=== PATIENT | male | born 1980 | race Caucasian/White ===

== ENCOUNTER 2017-05-03 16:27 | Emergency (ER) | payer MEDICARE, SELFPAY ==
[2017-05-03 17:00] VITALS: BP 131/68
--- NOTE | 2017-05-03 17:51 | EDM.PDOC ---
[id number]: LOW BACK PAIN Time Seen by Provider: 05/03/17 17:25 Source of Information: Reports: Patient, Family History Limitations: Reports: No Limitations - History of Present Illness INITIAL COMMENTS - FREE TEXT/NARRATIVE: 36-year-old male with chronic low back pain after several surgeries has a chronic nerve stimulator which helps control pain. The cord to charge the stimulator ripped off when it got caught on a dresser, another cord is ordered and should arrive any day but his battery ran out of power 2 days ago. He has an appointment to establish care with Dr. Dubose in 2 weeks. No significant radiculopathy, no incontinence. He's been taking ibuprofen and Tylenol. Onset: Gradual (Over the past several days) Location: Reports: Back Quality: Reports: Ache, Burning Severity: Moderate Associated Symptoms: Denies: Headaches, Loss of Appetite, Shortness of Breath, Weakness Lower Posterior Back Pain Score (Numeric/FACES): 9 - Related Data Allergies Allergy/AdvReac Type Severity Reaction Status Date / Time dronabinol Allergy Cannot Verified 04/07/15 21:31 Remember codeine AdvReac Nausea and Verified 04/07/15 21:31 Vomiting tramadol AdvReac Nausea and Verified 04/07/15 21:31 Vomiting Home Meds: Home Meds Amitriptyline [Elavil] 150 mg PO BEDTIME 11/19/13 [History] DULoxetine [Cymbalta] 90 mg PO DAILY 11/11/14 [History] Amphetamine/Dextroamphetamine [Adderall XR] 1 tab PO QAM 05/03/17 [History] Divalproex Sodium [Divalproex Sodium ER] 1 tab PO TID 05/03/17 [History] Past Medical History Neurological History: Reports: Brain Injury, Head Trauma Psychiatric History: Reports: ADHD, Bipolar, Depression - Past Surgical History Neurological Surgical History: Reports: Lumbar Spine, Other (See Below) Other Neurological Surgeries/Procedures: spinal stimulator Social & Family History - Tobacco Use Smoking Status *Q: Never Smoker Years of Tobacco use: 30 Month Tobacco Last Used: November Second Hand Smoke Exposure: No - Caffeine Use Caffeine Use: Reports: None - Alcohol Use Days Per Week of Alcohol Use: 0 - Recreational Drug Use Recreational Drug Use: No ED ROS GENERAL - Review of Systems Review Of Systems: See Below Constitutional: Denies: Fever, Chills HEENT: Reports: No Symptoms Respiratory: Denies: Shortness of Breath GI/Abdominal: Denies: Abdominal Pain, Nausea, Vomiting : Reports: No Symptoms. Denies: Incontinence Musculoskeletal: Reports: Back Pain Skin: Reports: No Symptoms Neurological: Denies: Headache Psychiatric: Reports: Other (Patient is bipolar and is also a victim of head trauma or chronic brain injury) ED EXAM,LOWER BACK PAIN/INJURY - Physical Exam Exam: See Below Exam Limited By: No Limitations General Appearance: Alert, No Apparent Distress (Patient does look uncomfortable but not distressed) Respiratory/Chest: No Respiratory Distress, Lungs Clear Back Exam: Muscle Spasm (Muscles are tight along the lumbar spine), Paraspinal Tenderness, Vertebral Tenderness (Over the lumbar spine), Other (He also has a palpable nerve stimulator subcutaneously in the left lower back) Neurological: Alert, No Motor/Sensory Deficits Skin Exam: Warm, Dry, Other (Patient has well-healed surgical scars over the lower back) Course - Vital Signs Last Recorded V/S: Last Vital Signs Temp 95.9 F 05/03/17 17:23 Pulse 85 05/03/17 17:23 Resp 16 05/03/17 17:23 BP 131/68 05/03/17 17:23 Pulse Ox 98 05/03/17 17:23 - Re-Assessments/Exams Free Text/Narrative Re-Assessment/Exam: 05/03/17 17:50 A [employer] search was done on the patient and he was found to not have had any oxycodone since last July. His is with him and claims he takes medication appropriately and seems believable. I'll provide him with 20 oxycodone to use for breakthrough pain until he can get his nerve stimulator recharged and establish care with Dr. Dubose. Departure - Departure Time of Disposition: 17:58 Disposition: Home, Self-Care 01 Condition: Good Clinical Impression: Acute exacerbation of chronic low back pain - Discharge Information Instructions: Back Pain, Adult, [id number] Referrals: Hany Dubose MD [Primary Care Provider] - Forms: ED Department Discharge Care Plan Goals: Continue activity as tolerated, continue with ibuprofen and add stronger pain medication as prescribed. Recheck with Dr. Dubose as soon as possible.
== END 2017-05-03 17:59 | disposition home or self-care (01) ==
LOC: JP.ED 16:27
DX: G89.29 Other chronic pain (principal); M54.5 Low back pain; F90.9 Attention-deficit hyperactivity disorder, unspecified type; F32.9 Major depressive disorder, single episode, unspecified; Z88.5 Allergy status to narcotic agent; Z88.8 Allergy status to other drugs, medicaments and biological substances; Z79.899 Other long term (current) drug therapy
CPT/HCPCS: 99283

== ENCOUNTER 2017-06-01 11:20 | Emergency (ER) | payer MEDICARE, SELFPAY ==
[2017-06-01 11:34] VITALS: BP 141/72
--- NOTE | 2017-06-01 13:18 | EDM.PDOC ---
ED HPI GENERAL MEDICAL PROBLEM - General Chief Complaint: Back Pain or Injury Stated Complaint: BACK PAIN Time Seen by Provider: 06/01/17 12:03 Source of Information: Reports: Patient History Limitations: Reports: No Limitations - History of Present Illness INITIAL COMMENTS - FREE TEXT/NARRATIVE: 36-year-old gentleman presents emergency department today with complaint of defective pain stimulator he broke and external piece of his pain stimulator is been broken for about a month he has not been able to replace that he has been using oxycodone for his usual pain control recently filled by his primary care provider he was recently incarcerated at [facility] he states the nurse then disposed of the pain medication and he is currently out he's asking for refill Lower Back Pain Score (Numeric/FACES): 10 - Related Data Allergies Allergy/AdvReac Type Severity Reaction Status Date / Time dronabinol Allergy Cannot Verified 06/01/17 11:45 Remember codeine AdvReac Nausea and Verified 06/01/17 11:45 Vomiting tramadol AdvReac Nausea and Verified 06/01/17 11:45 Vomiting Home Meds: Home Meds Amitriptyline [Elavil] 75 mg PO BEDTIME 11/19/13 [History] DULoxetine [Cymbalta] 90 mg PO DAILY 11/11/14 [History] Amphetamine/Dextroamphetamine [Adderall XR] 1 tab PO QAM 05/03/17 [History] Divalproex Sodium [Divalproex Sodium ER] 1 tab PO TID 05/03/17 [History] LORazepam [LORazepam] 1 tab PO DAILY 06/01/17 [History] Past Medical History HEENT History: Reports: Impaired Vision Musculoskeletal History: Reports: Other (See Below) Other Musculoskeletal History: Deep cut r foot. Neurological History: Reports: Brain Injury, Head Trauma Psychiatric History: Reports: ADHD, Bipolar, Depression - Infectious Disease History Infectious Disease History: Reports: Chicken Pox, Measles, Mumps - Past Surgical History Neurological Surgical History: Reports: Lumbar Spine, Other (See Below) Other Neurological Surgeries/Procedures: spinal stimulator Social & Family History - Tobacco Use Smoking Status *Q: Never Smoker Years of Tobacco use: 30 Month Tobacco Last Used: November Second Hand Smoke Exposure: No - Caffeine Use Caffeine Use: Reports: Coffee, Soda, Tea - Alcohol Use Days Per Week of Alcohol Use: 0 - Recreational Drug Use Recreational Drug Use: No ED ROS GENERAL - Review of Systems Review Of Systems: See Below Musculoskeletal: Reports: Back Pain ED EXAM, GENERAL - Physical Exam Exam: See Below Exam Limited By: No Limitations General Appearance: Alert, WD/WN, No Apparent Distress Course - Vital Signs Last Recorded V/S: Last Vital Signs Temp 97.5 F 06/01/17 11:44 Pulse 130 H 06/01/17 11:44 Resp 16 06/01/17 11:44 BP 141/72 H 06/01/17 11:44 Pulse Ox 96 06/01/17 11:44 Departure - Departure Time of Disposition: 13:16 Disposition: Home, Self-Care 01 Condition: Fair Clinical Impression: Acute exacerbation of chronic low back pain - Discharge Information Forms: ED Department Discharge Additional Instructions: Your device is a [employer] restore sensor surescan pulse generator, patient services number [employer] is , there is a new pain management nurse practitioner [facility] Dr. Pablo, recommend follow-up with your primary care provider for referral as well as refill of your pain medications - Assessment/Plan Plan: Assessment Acuity = chronic Site and laterality = low back pain controlled with a implantable pulse generator now malfunctioning Etiology = secondary to a broken piece of equipment Manifestations = none Location of injury = Home Lab values = none Plan I did contact the [employer] service rep he did provide me with a phone number to contact the patient's services at [employer] so that the patient can describe the broken apart and they will overnight him a new piece, he asked for refill of his oxycodone which I declined recommended that he follow-up with his primary care provider for refill of chronic pain medications Patient was in agreement with the plan all questions were answered, they were instructed to return to the emergency department or call for worsening symptoms. This note was dictated using [employer] voice recognition software please call with any questions.
== END 2017-06-01 13:25 | disposition home or self-care (01) ==
LOC: JP.ED 11:20
DX: G89.29 Other chronic pain (principal); M54.5 Low back pain; F31.9 Bipolar disorder, unspecified; Z88.5 Allergy status to narcotic agent; Z88.8 Allergy status to other drugs, medicaments and biological substances; Z79.899 Other long term (current) drug therapy; Z98.890 Other specified postprocedural states
CPT/HCPCS: 99283

== ENCOUNTER 2017-07-01 12:42 | Emergency (ER) | payer MEDICARE, SELFPAY ==
[2017-07-01 13:05] VITALS: BP 147/87
--- NOTE | 2017-07-01 13:37 | EDM.PDOC ---
ED HPI GENERAL MEDICAL PROBLEM - General Chief Complaint: ENT Problem Stated Complaint: SORE THROAT Time Seen by Provider: 07/01/17 13:20 Source of Information: Reports: Patient History Limitations: Reports: No Limitations - History of Present Illness INITIAL COMMENTS - FREE TEXT/NARRATIVE: Patient presents today with complaints of sore throat for 24 hours. He denies fever, chills, nausea or change in bowel and bladder habits. Severity: Moderate Improves with: Reports: None Worsens with: Reports: Eating Treatments INFECTION PREVENTION SPECIALIST: Reports: Acetaminophen - Related Data Allergies Allergy/AdvReac Type Severity Reaction Status Date / Time dronabinol Allergy Cannot Verified 07/01/17 13:05 Remember codeine AdvReac Nausea and Verified 07/01/17 13:05 Vomiting tramadol AdvReac Nausea and Verified 07/01/17 13:05 Vomiting Home Meds: Home Meds Amitriptyline [Elavil] 75 mg PO BEDTIME 11/19/13 [History] DULoxetine [Cymbalta] 90 mg PO DAILY 11/11/14 [History] Amphetamine/Dextroamphetamine [Adderall XR] 1 tab PO QAM 05/03/17 [History] [place] Carbonate [Lithobid] 07/01/17 [History] oxyCODONE [oxyCODONE] 07/01/17 [History] risperiDONE [risperiDONE] 07/01/17 [History] Past Medical History HEENT History: Reports: Impaired Vision Musculoskeletal History: Reports: Other (See Below) Other Musculoskeletal History: Deep cut r foot. Neurological History: Reports: Brain Injury, Head Trauma Psychiatric History: Reports: ADHD, Bipolar, Depression - Infectious Disease History Infectious Disease History: Reports: Chicken Pox, Measles, Mumps - Past Surgical History Neurological Surgical History: Reports: Lumbar Spine, Other (See Below) Other Neurological Surgeries/Procedures: spinal stimulator Social & Family History - Tobacco Use Smoking Status *Q: Current Every Day Smoker Years of Tobacco use: 5 Packs/Tins Daily: 0.2 Month Tobacco Last Used: November Second Hand Smoke Exposure: No - Caffeine Use Caffeine Use: Reports: Coffee, Soda, Tea - Alcohol Use Days Per Week of Alcohol Use: 0 - Recreational Drug Use Recreational Drug Use: No ED ROS ENT - Review of Systems Review Of Systems: See Below Constitutional: Denies: Fever, Chills, Malaise HEENT: Reports: Throat Pain. Denies: Dental Pain, Ear Pain, Nose Pain, Sinus Problem, Throat Swelling Respiratory: Denies: Shortness of Breath, Wheezing, Cough, Sputum Cardiovascular: Reports: No Symptoms Endocrine: Reports: No Symptoms GI/Abdominal: Denies: Nausea, Vomiting Musculoskeletal: Denies: Joint Pain, Joint Swelling, Muscle Pain, Muscle Stiffness Skin: Denies: Pruritis, Rash, Erythema Neurological: Reports: No Symptoms Psychiatric: Reports: No Symptoms Hematologic/Lymphatic: Reports: No Symptoms Immunologic: Reports: No Symptoms ED EXAM, ENT - Physical Exam Exam: See Below Text/Narrative:: Clayton is an alert, oriented and pleasant 36 year old male with complaints of sore throat for 24 hours. He reports past history of repeated strep throat infections. Exam Limited By: No Limitations General Appearance: Alert, WD/WN, No Apparent Distress Eye Exam: Bilateral Eye: EOMI, Normal Inspection, PERRL Ears: Normal External Exam, Normal Canal, Hearing Grossly Normal, Normal TMs Nose: Normal Inspection, Normal Mucousa, No Blood Mouth/Throat: Normal Gums, Normal Lips, Normal Teeth, Throat Pain, Tonsillar Erythema, Tonsillar Swelling. No: Hoarse Voice, Throat Swelling, Tonsillar Exudates, Uvular Deviation, Uvular Edema Head: Atraumatic, Normocephalic. No: Scalp Tenderness, Facial Tenderness, Sinus Tenderness Neck: Normal Inspection, Supple, Non-Tender, Full Range of Motion. No: Lymphadenopathy (R), Lymphadenopathy (L) Respiratory/Chest: No Respiratory Distress, Lungs Clear, Normal Breath Sounds, No Accessory Muscle Use, Chest Non-Tender Cardiovascular: Normal Peripheral Pulses, Regular Rate, Rhythm, No Edema, No Murmur, No Rub Back: Normal Inspection, Full Range of Motion. No: CVA Tenderness (R), CVA Tenderness (L) Extremities: Normal Inspection, Normal Range of Motion, Non-Tender, No Pedal Edema, Normal Capillary Refill Neurological: Alert, Oriented, CN II-XII Intact, Normal Cognition, No Motor/ Sensory Deficits Psychiatric: Normal Affect, Normal Mood Skin: Warm, Dry, Intact, Normal Color Lymphatic: No Adenopathy Course - Vital Signs Last Recorded V/S: Last Vital Signs Temp 35.9 C 07/01/17 13:14 Pulse 103 H 07/01/17 13:14 Resp 16 07/01/17 13:14 BP 147/87 H 07/01/17 13:14 Pulse Ox 95 07/01/17 13:14 - Orders/Labs/Meds Orders: Active Orders 24 hr Category Date Time Status CULTURE STREP A CONFIRMATION [RM] Stat Lab 07/01/17 13:31 Results STREP SCRN A RAPID W CULT CONF [RM] Stat Lab 07/01/17 13:31 Results Labs: Strep screen negative - Re-Assessments/Exams Free Text/Narrative Re-Assessment/Exam: 07/01/17 13:37 Patient offered ibuprofen or acetaminophen for pain, he declined. Departure - Departure Time of Disposition: 14:23 Disposition: Home, Self-Care 01 Condition: Good Clinical Impression: Pharyngitis - Discharge Information Instructions: Pharyngitis, [id number] Referrals: PCP,None [Primary Care Provider] - Forms: ED Department Discharge Additional Instructions: Your strep screen was negative. A culture will be completed, if this turns up positive you will be provided the appropriate antibiotic. At this time, it is best for you to treat your pain with ibuprofen, acetaminophen. Drink cold or hot fluids, whichever one helps the best. Do a salt water gargle 4 to 6 times a day to assist with pain. Return with fevers or chills. Stay hydrated. - My Orders Last 24 Hours: My Active Orders 07/01/17 13:31 CULTURE STREP A CONFIRMATION [RM] Stat STREP SCRN A RAPID W CULT CONF [RM] Stat - Assessment/Plan Last 24 Hours: My Active Orders 07/01/17 13:31 CULTURE STREP A CONFIRMATION [RM] Stat STREP SCRN A RAPID W CULT CONF [RM] Stat Assessment:: pharyngitis Plan: Strep screen was negative. A culture will be completed, if this turns up positive patient will be provided the appropriate antibiotic. At this time, it is best for patient to treat pain with ibuprofen, acetaminophen. Drink cold or hot fluids, whichever one helps the best. Do a salt water gargle 4 to 6 times a day to assist with pain. Return with fevers or chills. Stay hydrated.
== END 2017-07-01 15:00 | disposition home or self-care (01) ==
LOC: JP.ED 12:42
DX: J02.9 Acute pharyngitis, unspecified (principal); F17.210 Nicotine dependence, cigarettes, uncomplicated; F31.9 Bipolar disorder, unspecified; Z88.5 Allergy status to narcotic agent; Z79.899 Other long term (current) drug therapy
CPT/HCPCS: 87081; 87430; 99283

== ENCOUNTER 2017-07-23 17:22 | Emergency (ER) | payer MEDICARE, SELFPAY ==
[2017-07-23 17:34] VITALS: BP 142/88
[2017-07-23] MEDS ORDERED: Bacitracin Oint 1 GM U/D Packet TOP ONE (17:39)
--- NOTE | 2017-07-23 18:09 | EDM.PDOC ---
ED HPI GENERAL MEDICAL PROBLEM - General Chief Complaint: Laceration Stated Complaint: LEFT HAND LACERATION Time Seen by Provider: 07/23/17 17:38 Source of Information: Reports: Patient, RN Notes Reviewed History Limitations: Reports: No Limitations - History of Present Illness INITIAL COMMENTS - FREE TEXT/NARRATIVE: 37-year-old gentleman presents emergency department a laceration to his digit #5 , this happened about when a porcelain sink broke and he ended up catching the lateral aspect of digit #5 and he has a laceration bleeding is controlled he has no functional complaints Left Hand Pain Score (Numeric/FACES): 7 - Related Data Allergies Allergy/AdvReac Type Severity Reaction Status Date / Time dronabinol Allergy Cannot Verified 07/01/17 13:05 Remember codeine AdvReac Nausea and Verified 07/01/17 13:05 Vomiting tramadol AdvReac Nausea and Verified 07/01/17 13:05 Vomiting Home Meds: Home Meds Amitriptyline [Elavil] 75 mg PO BEDTIME 11/19/13 [History] DULoxetine [Cymbalta] 90 mg PO DAILY 11/11/14 [History] Amphetamine/Dextroamphetamine [Adderall XR] 1 tab PO QAM 05/03/17 [History] [place] Carbonate [Lithobid] 07/01/17 [History] oxyCODONE [oxyCODONE] 07/01/17 [History] risperiDONE [risperiDONE] 07/01/17 [History] Past Medical History HEENT History: Reports: Impaired Vision Musculoskeletal History: Reports: Other (See Below) Other Musculoskeletal History: Deep cut r foot. Neurological History: Reports: Brain Injury, Head Trauma Psychiatric History: Reports: ADHD, Bipolar, Depression - Infectious Disease History Infectious Disease History: Reports: Chicken Pox, Measles, Mumps - Past Surgical History Neurological Surgical History: Reports: Lumbar Spine, Other (See Below) Other Neurological Surgeries/Procedures: spinal stimulator Social & Family History - Tobacco Use Smoking Status *Q: Current Every Day Smoker Years of Tobacco use: 5 Packs/Tins Daily: 0.2 Month Tobacco Last Used: November Second Hand Smoke Exposure: No - Caffeine Use Caffeine Use: Reports: Coffee, Soda - Alcohol Use Days Per Week of Alcohol Use: 0 - Recreational Drug Use Recreational Drug Use: No ED ROS GENERAL - Review of Systems Review Of Systems: See Below Constitutional: Reports: No Symptoms Musculoskeletal: Reports: No Symptoms Skin: Reports: Wound Neurological: Reports: No Symptoms ED EXAM, SKIN/RASH Exam: See Below Text/Narrative:: Examination of the left hand I do appreciate a 2.5 cm laceration over the pIP joint lateral aspect of digit #5 he has full range of motion of all digits and radial pulse is +2 sensation is intact. Exam Limited By: No Limitations General Appearance: Alert, WD/WN, No Apparent Distress ED SKIN PROCEDURES - Laceration/Wound Repair Left Finger Lac/Wound length In cm: 2.5 Appearance: Subcutaneous, Irregular Distal NVT: Neuro & Vascular Intact, No Tendon Injury Anesthetic Type: Digital Local Anesthesia - Lidocaine (Xylocaine): 1% Plain Local Anesthesia - Bupivicaine (Marcaine): 0.5% Plain Local Anesthetic Volume: 2cc Skin Prep: Chlorhexidine (Hibiciens), Saline Saline Irrigation (cc's): 60 Exploration/Debridement/Repair: Wound Explored, In a Bloodless Field, Explored to Base Closed with: Sutures Suture Size: 4-0 # of Sutures: 4 Suture Type: Nylon, Interrupted Tetanus Status Addressed: Yes Complications: No Course - Vital Signs Last Recorded V/S: Last Vital Signs Temp 98.1 F 07/23/17 17:31 Pulse 113 H 07/23/17 17:31 Resp 16 07/23/17 17:31 BP 142/88 H 07/23/17 17:31 Pulse Ox 96 07/23/17 17:31 - Orders/Labs/Meds Meds: Medications Discontinued Medications Generic Name Dose Route Start Last Admin Trade Name Shaneq PRN Reason Stop Dose Admin Bacitracin 1 dose 07/23/17 17:39 Bacitracin Oint 1 Gm TOP 07/23/17 17:40 ONETIME ONE Lidocaine HCl 5 ml 07/23/17 17:39 Xylocaine-Mpf 1% INJECT 07/23/17 17:40 ONETIME ONE Departure - Departure Time of Disposition: 18:10 Disposition: Home, Self-Care 01 Condition: Good Clinical Impression: Laceration of left little finger Qualifiers: Encounter type: initial encounter Damage to nail status: without damage Foreign body presence: without foreign body Qualified Code(s): S61.217A - Laceration without foreign body of left little finger without damage to nail, initial encounter - Discharge Information Referrals: Hany Dubose MD [Primary Care Provider] - Additional Instructions: Follow-up with primary care for suture removal in 10 days, follow wound care instruction sheet, call return to the emergency department worsening of symptoms - Assessment/Plan Plan: Assessment Acuity = acute Site and laterality = 2.5 cm laceration digit #5 left hand over the PIP joint Etiology = secondary to trauma Manifestations = none Location of injury = Home Lab values = none Plan Suture removal in 10 days, follow wound care instruction sheet follow-up with primary for suture removal Patient was in agreement with the plan all questions were answered, they were instructed to return to the emergency department or call for worsening symptoms. This note was dictated using [employer] voice recognition software please call with any questions.
== END 2017-07-23 18:20 | disposition home or self-care (01) ==
LOC: JP.ED 17:22
DX: S61.217A Laceration without foreign body of left little finger without damage to nail, initial encounter (principal); F17.210 Nicotine dependence, cigarettes, uncomplicated; F32.9 Major depressive disorder, single episode, unspecified; Z79.899 Other long term (current) drug therapy; Z88.5 Allergy status to narcotic agent; Z88.8 Allergy status to other drugs, medicaments and biological substances; Z98.890 Other specified postprocedural states; W45.8XXA Other foreign body or object entering through skin, initial encounter
CPT/HCPCS: 12001; 99283-25

== ENCOUNTER 2019-10-27 12:49 | Emergency (ER) | payer MEDICARE ==
[2019-10-27 12:57] VITALS: BP 141/90; PULSE 91
--- NOTE | 2019-10-27 13:32 | EDM.PDOCBH ---
ED HPI GENERAL MEDICAL PROBLEM - General Chief Complaint: Drug or Alcohol Abuse Stated Complaint: EVAL Time Seen by Provider: 10/27/19 13:27 Source of Information: Reports: Patient, Family, RN Notes Reviewed History Limitations: Reports: No Limitations - History of Present Illness INITIAL COMMENTS - FREE TEXT/NARRATIVE: 39-year-old gentleman brought in by parents for evaluation, they are concerned about drug use he denies any drug use the complaint is that he has been excessively sleepy at times and agitated at other times does have a history of anger outbursts. He is willing to commit to blood work and urine for further evaluation he denies any suicidal ideation or homicidal ideation does admit to depression - Related Data Allergies Allergy/AdvReac Type Severity Reaction Status Date / Time dronabinol Allergy Cannot Verified 10/27/19 13:20 Remember codeine AdvReac Nausea and Verified 10/27/19 13:20 Vomiting tramadol AdvReac Nausea and Verified 10/27/19 13:20 Vomiting Home Meds: Home Meds Amitriptyline [Elavil] 75 mg PO BEDTIME 11/19/13 [History] DULoxetine [Cymbalta] 90 mg PO DAILY 11/11/14 [History] Amphetamine/Dextroamphetamine [Adderall XR] 1 tab PO QAM 05/03/17 [History] risperiDONE 1 mg PO DAILY 07/01/17 [History] Dextroamphetamine/Amphetamine [Dextroamp-Amphet ER 30 mg Cap] 30 mg PO DAILY [History] Ketorolac [Toradol] 10 mg PO ASDIRECTED 09/02/19 [History] Lurasidone HCl [Latuda] 40 mg PO DAILY 09/02/19 [History] Meloxicam 7.5 mg PO TID 09/02/19 [History] Ondansetron [Zofran ODT] 4 mg PO Q6H PRN #7 tab.dis 09/02/19 [Rx] Past Medical History HEENT History: Reports: Impaired Vision Musculoskeletal History: Reports: Fracture Other Musculoskeletal History: Deep cut r foot. Neurological History: Reports: Brain Injury, Head Trauma Psychiatric History: Reports: ADHD, Bipolar, Depression - Infectious Disease History Infectious Disease History: Reports: Chicken Pox, Measles, Mumps - Past Surgical History GI Surgical History: Reports: Hernia Repair/Other Neurological Surgical History: Reports: Lumbar Spine, Other (See Below) Other Neurological Surgeries/Procedures: spinal stimulator Musculoskeletal Surgical History: Reports: Other (See Below) Other Musculoskeletal Surgeries/Procedures:: surgery on finger Social & Family History - Tobacco Use Smoking Status *Q: Light Tobacco Smoker Years of Tobacco use: 27 Packs/Tins Daily: 0.5 - Caffeine Use Caffeine Use: Reports: Coffee, Soda Other Caffeine Use: 2 per day - Recreational Drug Use Recreational Drug Use: No ED ROS GENERAL - Review of Systems Review Of Systems: See Below Constitutional: Reports: No Symptoms HEENT: Reports: No Symptoms Respiratory: Reports: No Symptoms Cardiovascular: Reports: No Symptoms GI/Abdominal: Reports: No Symptoms : Reports: No Symptoms Musculoskeletal: Reports: No Symptoms Skin: Reports: No Symptoms Neurological: Reports: No Symptoms Psychiatric: Reports: Depression. Denies: Hallucinations, Homicidal Ideation, Mood Lability, Suicidal Ideation ED EXAM, BEHAVIORAL HEALTH - Physical Exam Exam: See Below Exam Limited By: No Limitations General Appearance: Alert, WD/WN, No Apparent Distress Respiratory/Chest: No Respiratory Distress, Lungs Clear, Normal Breath Sounds, No Accessory Muscle Use, Chest Non-Tender Cardiovascular: Regular Rate, Rhythm, No Murmur GI/Abdominal: Soft, Non-Tender Psychiatric: Alert, Normal Affect, Normal Cognition, Normal Mood, Oriented. No : Homicidal Thoughts, Suicidal Thoughts, Auditory Hallucinations COURSE, BEHAVIORAL HEALTH COMP - Course Vital Signs: Last Vital Signs Temp 98.2 F 10/27/19 13:19 Pulse 91 10/27/19 13:19 Resp 20 10/27/19 13:19 BP 141/90 H 10/27/19 13:19 Pulse Ox 99 10/27/19 13:19 Orders, Labs, Meds: Laboratory Tests 10/27/19 10/27/19 10/27/19 Range/Units 13:39 13:39 13:39 WBC 9.4 (4.5-11.0) K/uL RBC 5.39 (4.30-5.90) M/uL Hgb 15.5 H (12.0-15.0) g/dL Hct 47.3 (40.0-54.0) % MCV 88 (80-98) fL MCH 29 (27-31) pg MCHC 33 (32-36) % Plt Count 489 H (150-400) K/uL Neut % (Auto) 59 (36-66) % Lymph % (Auto) 29 (24-44) % Conway % (Auto) 10 H (2-6) % Eos % (Auto) 2 (2-4) % Baso % (Auto) 1 (0-1) % Sodium 137 L (140-148) mmol/L Potassium 4.0 (3.6-5.2) mmol/L Chloride 102 (100-108) mmol/L Carbon Dioxide 26 (21-32) mmol/L Anion Gap 13.0 (5.0-14.0) mmol/L BUN 9 (7-18) mg/dL Creatinine 0.8 (0.8-1.3) mg/dL Est Cr Clr Drug Dosing 117.56 mL/min Estimated GFR (MDRD) > 60 (>60) Glucose 116 H (74-106) mg/dL Calcium 8.7 (8.5-10.1) mg/dL Total Bilirubin 0.1 L D (0.2-1.0) mg/dL AST 14 L (15-37) U/L ALT 25 (12-78) U/L Alkaline Phosphatase 82 (46-116) U/L Total Protein 7.5 (6.4-8.2) g/dL Albumin 4.1 (3.4-5.0) g/dL Globulin 3.4 (2.3-3.5) g/dL Albumin/Globulin Ratio 1.2 (1.2-2.2) TSH, Ultra Sensitive (0.358-3.740) uIU/mL Urine Opiates Screen (NEGATIVE) Ur Oxycodone Screen (NEGATIVE) Urine Methadone Screen (NEGATIVE) Ur Propoxyphene Screen (NEGATIVE) Ur Barbiturates Screen (NEGATIVE) Ur Tricyclics Screen (NEGATIVE) Ur Phencyclidine Scrn (NEGATIVE) Ur Amphetamine Screen (NEGATIVE) U Methamphetamines Scrn (NEGATIVE) Urine MDMA Screen (NEGATIVE) U Benzodiazepines Scrn (NEGATIVE) U Cocaine Metab Screen (NEGATIVE) U Marijuana (THC) Screen (NEGATIVE) Ethyl Alcohol < 3 mg/dL 10/27/19 10/27/19 Range/Units 13:39 13:42 WBC (4.5-11.0) K/uL RBC (4.30-5.90) M/uL Hgb (12.0-15.0) g/dL Hct (40.0-54.0) % MCV (80-98) fL MCH (27-31) pg MCHC (32-36) % Plt Count (150-400) K/uL Neut % (Auto) (36-66) % Lymph % (Auto) (24-44) % Conway % (Auto) (2-6) % Eos % (Auto) (2-4) % Baso % (Auto) (0-1) % Sodium (140-148) mmol/L Potassium (3.6-5.2) mmol/L Chloride (100-108) mmol/L Carbon Dioxide (21-32) mmol/L Anion Gap (5.0-14.0) mmol/L BUN (7-18) mg/dL Creatinine (0.8-1.3) mg/dL Est Cr Clr Drug Dosing mL/min Estimated GFR (MDRD) (>60) Glucose (74-106) mg/dL Calcium (8.5-10.1) mg/dL Total Bilirubin (0.2-1.0) mg/dL AST (15-37) U/L ALT (12-78) U/L Alkaline Phosphatase (46-116) U/L Total Protein (6.4-8.2) g/dL Albumin (3.4-5.0) g/dL Globulin (2.3-3.5) g/dL Albumin/Globulin Ratio (1.2-2.2) TSH, Ultra Sensitive 1.190 (0.358-3.740) uIU/mL Urine Opiates Screen Negative (NEGATIVE) Ur Oxycodone Screen Negative (NEGATIVE) Urine Methadone Screen Negative (NEGATIVE) Ur Propoxyphene Screen Negative (NEGATIVE) Ur Barbiturates Screen Negative (NEGATIVE) Ur Tricyclics Screen Negative (NEGATIVE) Ur Phencyclidine Scrn Negative (NEGATIVE) Ur Amphetamine Screen Presumptive positive H (NEGATIVE) U Methamphetamines Scrn Presumptive positive H (NEGATIVE) Urine MDMA Screen Negative (NEGATIVE) U Benzodiazepines Scrn Negative (NEGATIVE) U Cocaine Metab Screen Negative (NEGATIVE) U Marijuana (THC) Screen Negative (NEGATIVE) Ethyl Alcohol mg/dL Departure - Departure Time of Disposition: 14:50 Disposition: Home, Self-Care 01 Condition: Poor Clinical Impression: Methamphetamine abuse - Discharge Information Referrals: Hany Dubose MD [Primary Care Provider] - Forms: ED Department Discharge Additional Instructions: Please followup with your primary care provider in 3-5 days if not better, please call return to the emergency department with worsening of symptoms. Sepsis Event Note - Evaluation Sepsis Screening Result: No Definite Risk - Focused Exam Vital Signs: Vital Signs Temp Pulse Resp BP Pulse Ox 10/27/19 13:19 98.2 F 91 20 141/90 H 99 10/27/19 12:55 98.2 F 91 20 141/90 H 99 Date Exam was Performed: 10/27/19 Time Exam was Performed: 14:50 - Assessment/Plan Plan: Assessment Acuity = acute Site and laterality = methamphetamine abuse and dependence Etiology = methamphetamine Manifestations = none Location of injury = Home Lab values = CBC, CMP unremarkable thyroid within normal limits alcohol was negative urine drug screen positive for amphetamine which she is prescribed as well as methamphetamine Plan I did offer him detoxification with possible treatment he adamantly denies he is not taking any methamphetamine therefore he is discharged home follow-up primary care as needed This note was dictated using [email or web address] voice recognition software please call with any questions on syntax or grammar.
== END 2019-10-27 15:03 | disposition home or self-care (01) ==
LOC: JP.ED 12:49
DX: F15.10 Other stimulant abuse, uncomplicated (principal); F32.9 Major depressive disorder, single episode, unspecified; F17.210 Nicotine dependence, cigarettes, uncomplicated; Z88.5 Allergy status to narcotic agent; Z88.8 Allergy status to other drugs, medicaments and biological substances; Z79.899 Other long term (current) drug therapy
CPT/HCPCS: 36415; 80053; 80305; 84443; 85025; 99282; 99283; G0480

== ENCOUNTER 2020-08-28 12:08 | Emergency (ER) | payer MEDICARE ==
[2020-08-28 13:00] VITALS: BP 147/67; PULSE 74
[2020-08-28] MEDS ORDERED: Dexamethasone 4 MG Tab PO ONE (14:27)
--- NOTE | 2020-08-28 14:33 | EDM.PDOC ---
ED HPI GENERAL MEDICAL PROBLEM - General Chief Complaint: ENT Problem Stated Complaint: SORE THROAT Time Seen by Provider: 08/28/20 14:15 Source of Information: Reports: Patient History Limitations: Reports: No Limitations - History of Present Illness INITIAL COMMENTS - FREE TEXT/NARRATIVE: This is a 40-year-old male who presents with concerns of sore throat. His symptoms started several days ago. He reports sore throat, primarily when swallowing. No associated fevers. He does have a cough. No neck soreness or stiffness. No trismus. No difficulty breathing. - Related Data Allergies Allergy/AdvReac Type Severity Reaction Status Date / Time dronabinol Allergy Cannot Verified 10/27/19 13:20 Remember codeine AdvReac Nausea and Verified 10/27/19 13:20 Vomiting tramadol AdvReac Nausea and Verified 10/27/19 13:20 Vomiting Home Meds: Home Meds Amitriptyline [Elavil] 75 mg PO BEDTIME 11/19/13 [History] DULoxetine [Cymbalta] 90 mg PO DAILY 11/11/14 [History] Amphetamine/Dextroamphetamine [Adderall XR] 1 tab PO QAM 05/03/17 [History] risperiDONE 1 mg PO DAILY 07/01/17 [History] Dextroamphetamine/Amphetamine [Dextroamp-Amphet ER 30 mg Cap] 30 mg PO DAILY 09/02/19 [History] Ketorolac [Toradol] 10 mg PO ASDIRECTED 09/02/19 [History] Lurasidone HCl [Latuda] 40 mg PO DAILY 09/02/19 [History] Meloxicam 7.5 mg PO TID 09/02/19 [History] Ondansetron [Zofran ODT] 4 mg PO Q6H PRN #7 tab.dis 09/02/19 [Rx] Past Medical History HEENT History: Reports: Impaired Vision Musculoskeletal History: Reports: Fracture Other Musculoskeletal History: Deep cut r foot. Neurological History: Reports: Brain Injury, Head Trauma Psychiatric History: Reports: ADHD, Bipolar, Depression - Infectious Disease History Infectious Disease History: Reports: Chicken Pox, Measles, Mumps - Past Surgical History GI Surgical History: Reports: Hernia Repair/Other Neurological Surgical History: Reports: Lumbar Spine, Other (See Below) Other Neurological Surgeries/Procedures: spinal stimulator Musculoskeletal Surgical History: Reports: Other (See Below) Other Musculoskeletal Surgeries/Procedures:: surgery on finger Social & Family History - Caffeine Use Caffeine Use: Reports: Coffee, Energy Drinks, Soda Other Caffeine Use: 2 per day ED ROS ENT - Review of Systems Review Of Systems: See Below Constitutional: Reports: No Symptoms HEENT: Reports: Throat Pain Respiratory: Reports: No Symptoms Cardiovascular: Reports: No Symptoms Endocrine: Reports: No Symptoms GI/Abdominal: Reports: No Symptoms : Reports: No Symptoms Musculoskeletal: Reports: No Symptoms Skin: Reports: No Symptoms Neurological: Reports: No Symptoms Psychiatric: Reports: No Symptoms Hematologic/Lymphatic: Reports: No Symptoms Immunologic: Reports: No Symptoms ED EXAM, ENT - Physical Exam Exam: See Below Exam Limited By: No Limitations General Appearance: Alert, No Apparent Distress Ears: Normal External Exam Nose: Normal Inspection Mouth/Throat: Other (There is oropharyngeal erythema, minimal exudate, uvula is midline, no tonsillar enlargement or evidence of SPRING CRATER.) Head: Atraumatic, Normocephalic Neck: Normal Inspection Respiratory/Chest: No Respiratory Distress Cardiovascular: Regular Rate, Rhythm GI/Abdominal: No Distention Back: Normal Inspection Extremities: Normal Inspection Neurological: Alert, Oriented, Normal Cognition, Normal Gait Psychiatric: Normal Affect, Normal Mood Skin: Warm, Dry Course - Vital Signs Last Recorded V/S: Last Vital Signs Temp 35.6 C L 08/28/20 13:14 Pulse 74 08/28/20 13:14 Resp 16 08/28/20 13:14 BP 147/67 H 08/28/20 13:14 Pulse Ox 98 08/28/20 13:14 - Orders/Labs/Meds Meds: Medications Discontinued Medications Generic Name Dose Route Start Last Admin Trade Name Gloria PRN Reason Stop Dose Admin Dexamethasone 8 mg 08/28/20 14:27 Dexamethasone PO 08/28/20 14:28 ONETIME ONE - Re-Assessments/Exams Free Text/Narrative Re-Assessment/Exam: 40-year-old presents with concerns of sore throat. On exam normal vitals well- appearing. Has oral pharyngeal erythema but no other concerning findings. Negative by centor criteria for testing. Discussed steroids, patient wished to receive this so a dose of dexamethasone was given. Discussed Tylenol and ibuprofen and other somatic cares as well as indications to return to the ER. 08/28/20 14:39 Departure - Departure Time of Disposition: 14:29 Disposition: Home, Self-Care 01 Clinical Impression: Pharyngitis Qualifiers: Pharyngitis/tonsillitis etiology: unspecified etiology Qualified Code(s): J02.9 - Acute pharyngitis, unspecified - Discharge Information *PRESCRIPTION DRUG MONITORING PROGRAM REVIEWED*: No *COPY OF PRESCRIPTION DRUG MONITORING REPORT IN PATIENT CHANO: No Instructions: Pharyngitis Referrals: Hany Dubose MD [Primary Care Provider] - Forms: ED Department Discharge Additional Instructions: Your sore throat is likely caused by a virus We gave you a dose of a steroid, you do not need a antibiotic at this time. You were given a steroid to help with the swelling/inflammation. Please see a physician if you symptoms worsen. Sepsis Event Note (ED) - Evaluation Sepsis Screening Result: No Definite Risk - Focused Exam Vital Signs: Vital Signs Temp Pulse Resp BP Pulse Ox 08/28/20 13:14 35.6 C L 74 16 147/67 H 98 08/28/20 12:59 35.6 C L 74 16 147/67 H 98
== END 2020-08-28 15:02 | disposition home or self-care (01) ==
LOC: JP.ED 12:08
DX: J02.9 Acute pharyngitis, unspecified (principal); F31.9 Bipolar disorder, unspecified; F90.9 Attention-deficit hyperactivity disorder, unspecified type; Z88.5 Allergy status to narcotic agent; Z88.8 Allergy status to other drugs, medicaments and biological substances; Z79.899 Other long term (current) drug therapy
CPT/HCPCS: 99282; J8540

== ENCOUNTER 2023-02-22 16:53 | Emergency (ER) | payer MEDICARE ==
[2023-02-22 18:08] VITALS: BP 143/102; PULSE 95
== END 2023-02-22 18:08 | disposition home or self-care (01) ==
LOC: JP.ED 16:53
DX: K04.7 Periapical abscess without sinus (principal); Z72.0 Tobacco use; Z88.5 Allergy status to narcotic agent
CPT/HCPCS: 99282

== ENCOUNTER 2024-08-13 14:56 | Emergency (ER) | payer MEDICARE ==
[2024-08-13 15:09] VITALS: BP 144/99; PULSE 102
== END 2024-08-13 16:55 | disposition home or self-care (01) ==
LOC: JP.ED 14:56
DX: K04.7 Periapical abscess without sinus (principal); Z88.5 Allergy status to narcotic agent; Z79.899 Other long term (current) drug therapy; Z88.6 Allergy status to analgesic agent; Z88.8 Allergy status to other drugs, medicaments and biological substances
CPT/HCPCS: 99282; 99283

== ENCOUNTER 2025-05-28 06:54 | Day surgery (SDC) | payer MEDICARE ==
[2025-05-28] MEDS ORDERED: Propofol 200 MG/20 ML SDV ONE (07:11)
[2025-05-28] MEDS ORDERED: Midazolam 1 MG/ML 2 ML SDV ONE (07:11)
[2025-05-28] MEDS ORDERED: fentaNYL 100 MCG/2 ML SDV ONE (07:11)
[2025-05-28] MEDS: Lactated Ringers 1,000 ML IV SCH (07:33)
[2025-05-28 09:31] VITALS: BP 113/76; PULSE 59
== END 2025-05-28 09:41 | disposition home or self-care (01) ==
LOC: JP.SDS 06:54
PROVIDERS: ATTEND Surgery
DX: Z12.11 Encounter for screening for malignant neoplasm of colon (principal); D12.4 Benign neoplasm of descending colon; K63.5 Polyp of colon
CPT/HCPCS: 45380; 45385; 88305; J2250; J2704; J3010; J7120